=== PATIENT | female | born 1925 | race Caucasian/White ===

== ENCOUNTER → 2016-09-10 | Outpatient (CLI) | payer MEDICARE ==
--- NOTE | 2016-09-10 12:43 | CT ---
EXAMINATION TYPE: CT lumbar spine wo con DATE OF EXAM: 09/10/2016 9:03 AM COMPARISON: NONE HISTORY: 89-year-old female with pain, evaluate for spinal stenosis of lumbar spine TECHNIQUE: Contiguous axial scanning of the lumbar spine without IV contrast. Coronal and sagittal re constructions performed. CT DLP: 329.6 mGycm Automated exposure control for dose reduction was used. FINDINGS: There is bilateral nonobstructive renal calculi measuring up to 4 mm on the left. Left greater than r ight parapelvic cysts are demonstrated. There is osteopenia. Mild compression deformity of T12 is age indeterminate but suspected chronic. No retropulsion into the spinal canal. Alignment is maintained. Mild disc bulging at multiple levels. There is facet arthropathy lower lumbar spine with right-sided L5 pars interarticularis defect but no anterolisthesis. By CT, no large focal disc herniation is seen. Disc bulges contribute to variable mild bilateral neur oforaminal stenoses especially from L3 through S1 levels. IMPRESSION: 1. MILD COMPRESSION DEFORMITY OF T12 IS AGE INDETERMINATE BUT SUSPECTED TO BE CHRONIC. CORRELATE FOR ANY FOCAL PAIN AT THIS LEVEL. NO RETROPULSION INTO THE SPINAL CANAL. 2. MILD MULTILEVEL DEGENERATIVE DISC DISEASE. MILD FACET ARTHROPATHY LOWER LUMBAR SPINE. CHANGES RESU LT IN VARIABLE MILD NEUROFORAMINAL STENOSES FROM L3 THROUGH S1 LEVELS. 3. BY CT, NO LARGE FOCAL DISC HERNIATION OR CANAL COMPROMISE IS APPRECIATED. 4. RIGHT L5 PARS DEFECT . PRESERVED ALIGNMENT. 5. BILATERAL NONOBSTRUCTIVE NEPHROLITHIASIS.
== END ==
LOC: RADCTMAIN 08:39
PROVIDERS: ATTEND Family Medicine
DX: R51 Headache (principal); R41.3 Other amnesia
CPT/HCPCS: 72131

== ENCOUNTER → 2016-09-10 | Outpatient (CLI) | payer MEDICARE ==
[~2016-09-10] MED LIST: DENOSUMAB 60 MG/ML 1 ML SYRINGE SQ NR
[2016-09-10 08:14] VITALS: BP 116/59; PULSE 78; RESP 16; TEMP 97.7
== END | disposition home or self-care (01) ==
LOC: PROCWHC3 07:57
PROVIDERS: ATTEND Family Medicine
DX: M81.0 Age-related osteoporosis without current pathological fracture (principal)
CPT/HCPCS: 96372; J0897; 72131

== ENCOUNTER → 2016-09-30 | Outpatient (CLI) | payer MEDICARE ==
--- NOTE | 2016-10-06 10:07 | P.ARTDOP ---
Arterial Doppler LOWER EXTREMITY ARTERIAL DOPPLER: DATE OF SERVICE: 09/30/2016 Reason for study: Bilateral foot pain Doppler waveforms: Multiphasic bilaterally throughout. Pulse volume recording: []. Pressure gradients: None. Ankle-brachial indices: Greater than 1 bilaterally. Toe pressures: [] on the right, [] on the left Impression: Normal limited study.
== END | disposition home or self-care (01) ==
LOC: RADUSWWP 13:56
PROVIDERS: ATTEND Family Medicine
DX: I73.9 Peripheral vascular disease, unspecified (principal)
CPT/HCPCS: 93922

== ENCOUNTER → 2016-11-18 | Outpatient (CLI) | payer MEDICARE | END | disposition home or self-care (01) | LOC: LABWHC1 11:58 | PROVIDERS: ATTEND Psychiatry & Neurology Neurology | DX: G45.9 Transient cerebral ischemic attack, unspecified (principal) | CPT/HCPCS: 36415; 82565; 84520 ==

== ENCOUNTER → 2016-11-22 | Outpatient (CLI) | payer MEDICARE ==
--- NOTE | 2016-11-22 11:41 | MR ---
EXAMINATION TYPE: MR brain wo/w con DATE OF EXAM: 11/22/2016 COMPARISON: CT brain November 25, 2015 HISTORY: Leg stiffness per patient, TIA and tumor per order. TECHNIQUE: Multiplanar, multisequence images of the brain and brainstem is performed without and with IV contras t, utilizing 9 mL intravenous MultiHance . FINDINGS: Diffusion weighted images demonstrate no evidence of a recent infarct or other diffusion ab normality. There is no worrisome extra-axial fluid collection. There is ventricular and sulcal promi nence consistent with diffuse cerebral atrophy. There are focal and confluent areas of T2 hyperintens ity seen throughout the deep and periventricular white matter. Lesions are nonspecific in appearance and distribution but most likely on basis of product of chronic small vessel ischemic change in patie nt of this age. Midline structures demonstrate normal morphology. The craniocervical junction appears within normal limits. Post contrast images demonstrate no abnormal enhancement. The dural venous sinuses appear pa tent. Mucosal thickening in both sphenoid sinuses with dependent fluid right sphenoid sinus remains p resent IMPRESSION: 1. There is moderate diffuse cerebral atrophy and chronic small vessel ischemic change redemonstrated . 2. Possible recurrent acute right-sided sphenoid sinusitis, clinical correlation advised. 3. No evidence of a recent infarct. No suspicious enhancing intraparenchymal mass is noted.
== END | disposition home or self-care (01) ==
LOC: RADMRIMAIN 10:35
PROVIDERS: ATTEND Psychiatry & Neurology Neurology
DX: G31.9 Degenerative disease of nervous system, unspecified (principal); I67.82 Cerebral ischemia; D49.6 Neoplasm of unspecified behavior of brain
CPT/HCPCS: 70553

== ENCOUNTER → 2016-12-01 | Outpatient (CLI) | payer MEDICARE ==
--- NOTE | 2016-12-02 09:48 | MM ---
Reason for exam: screening (asymptomatic). Last mammogram was performed 2 years and 2 months ago. History: Patient is postmenopausal. Physical Findings: A clinical breast exam by your physician is recommended on an annual basis and results should be correlated with mammographic findings. MG 3D Screening Mammo W/Cad Bilateral CC and MLO view(s) were taken. Prior study comparison: September 17, 2014, bilateral MG screening mammo w CAD. September 14, 2013, bilateral MG screening mammo w CAD. The breast tissue is heterogeneously dense. This may lower the sensitivity of mammography. No significant changes when compared with prior studies. ASSESSMENT: Negative, BI-RAD 1 RECOMMENDATION: Routine screening mammogram of both breasts in 1 year.
== END | disposition home or self-care (01) ==
LOC: RADMAMWWP 13:09
PROVIDERS: ATTEND Family Medicine
DX: Z12.31 Encounter for screening mammogram for malignant neoplasm of breast (principal)
CPT/HCPCS: 77063; G0202

== ENCOUNTER → 2016-12-13 | Outpatient (CLI) | payer MEDICARE | END | disposition home or self-care (01) | LOC: LABWHC1 09:40 | PROVIDERS: ATTEND Psychiatry & Neurology Neurology | DX: M54.16 Radiculopathy, lumbar region (principal) | CPT/HCPCS: 36415; 82565; 84520 ==

== ENCOUNTER → 2016-12-18 | Outpatient (CLI) | payer MEDICARE ==
--- NOTE | 2016-12-18 08:04 | MR ---
EXAMINATION TYPE: MR lumbar spine wo/w con DATE OF EXAM: 12/18/2016 COMPARISON: NONE HISTORY: CT scan dated 09/10/2016 Contrast: 5 mL of MultiHance TECHNIQUE: T1 and T2 axial and sagittal images of the lumbar spine are submitted. FINDINGS: There is no abnormal signal seen within the visualized spinal cord or paraspinal soft tissu es. There are bilateral simple appearing renal cysts and nonobstructive calculi. At T12-L1 there is a moderate chronic compression superior endplate fracture T12. Approximately 5-10% retropulsion and mild effacement of thecal sac but no spinal cord contact or foraminal encroachment. At L1-2 there is mild degenerative disc disease. No Canal stenosis. No foraminal encroachment. At L2-3 there is mild degenerative disc disease and mild facet arthropathy and ligamentum flavum hype rtrophy but no canal stenosis or foraminal encroachment. At L3-4 there is mild degenerative disc disease with facet arthropathy and ligamentum flavum hypertro phy. No disc herniation, canal stenosis. Neural foramina remain patent. At L4-5 there is moderate facet arthropathy and ligamentum flavum hypertrophy. There is broad-based c entral left paracentral disc bulging with mild effacement of thecal sac. No Canal stenosis. Mild bila teral foraminal encroachment. At L5-S1 there is facet arthropathy with unilateral right spondylolysis but no spondylolisthesis. No canal stenosis or disc herniation. Neural foramina patent. IMPRESSION: 1. Multilevel mild degenerative disc disease with a chronic appearing superior endplate compression f racture T12. This results in 5-10% retropulsion and mild effacement of thecal sac but no spinal cord contact. 2. Multilevel facet arthropathy and hypertrophic change of the ligamentum flavum but no canal stenosi s or focal disc herniations. 3. Stable unilateral spondylolysis L5. 4. Disc bulging L4-L5 with no canal stenosis. Mild bilateral foraminal encroachment.
== END | disposition home or self-care (01) ==
LOC: RADMRIMAIN 07:02
PROVIDERS: ATTEND Psychiatry & Neurology Neurology
DX: M51.16 Intervertebral disc disorders with radiculopathy, lumbar region (principal); M47.26 Other spondylosis with radiculopathy, lumbar region; M46.06 Spinal enthesopathy, lumbar region
CPT/HCPCS: 72158; A9581

== ENCOUNTER → 2017-03-14 | Outpatient (CLI) | payer MEDICARE ==
[~2017-03-14] MED LIST changes: -DENOSUMAB 60 MG/ML 1 ML SYRINGE SQ NR; +DENOSUMAB 60 MG/ML 1 ML SYRINGE SQ ONE
[2017-03-14 09:03] VITALS: BP 134/61; RESP 16; TEMP 98
== END ==
LOC: PROCWHC3 08:47
PROVIDERS: ATTEND Family Medicine
DX: M81.0 Age-related osteoporosis without current pathological fracture (principal)
CPT/HCPCS: 96372; J0897

== ENCOUNTER 2017-08-25 12:09 | Emergency (ER) | payer MEDICARE ==
[2017-08-25 12:29] VITALS: TEMP 98.2
[2017-08-25] MEDS ORDERED: DIPH,PERTUS(ACELL)TETVAC-LF 0.5 ML VIAL IM ONE (12:52)
--- NOTE | 2017-08-25 13:00 | ED ---
General Adult HPI - General Chief complaint: Wound/Laceration Stated complaint: fall, head lac Time Seen by Provider: 08/25/17 12:30 Source: patient, family, RN notes reviewed Mode of arrival: wheelchair Limitations: no limitations - History of Present Illness Initial comments: 89-year-old female presents status post fall with head injury. Patient fell earlier this morning striking the back of her head. She did have significant amount of bleeding and she is not on blood thinner she does take a baby aspirin. According to the patient there was no loss of consciousness. She denies significant pain. She denies neck pain. Denies extremity pain. Denies chest pain or shortness of breath. No abdominal pain. Patient has had multiple falls over the past several years. She has had 2 falls within the last month. Patient is accompanied by her niece who is concerned about the number of falls she's had. She has been evaluated by her primary care physician who was well aware of her falling. She does have a cane but not use it all the time, no walker. Patient lives alone. - Related Data Home Medications Medication Instructions Recorded Confirmed Calcium Carbonate/Vitamin D3 1 tab PO DAILY 09/10/16 08/25/17 [Calcium 600-Vit D3 400 Caplet] Levothyroxine Sodium [Synthroid] 25 mcg PO Q48H 09/10/16 08/25/17 Aspirin [Adult Low Dose Aspirin EC] 81 mg PO DAILY 03/14/17 08/25/17 Cetirizine HCl [Zyrtec] 10 mg PO DAILY 08/25/17 08/25/17 Allergies Allergy/AdvReac Type Severity Reaction Status Date / Time codeine Allergy Nausea & Verified 08/25/17 12:38 Vomiting Review of Systems ROS Statement: Those systems with pertinent positive or pertinent negative responses have been documented in the HPI. ROS Other: All systems not noted in ROS Statement are negative. Past Medical History Past Medical History: Thyroid Disorder History of Any Multi-Drug Resistant Organisms: None Reported Additional Past Surgical History / Comment(s): c/s Past Psychological History: No Psychological Hx Reported Smoking Status: Never smoker Past Alcohol Use History: None Reported Past Drug Use History: None Reported General Exam Limitations: no limitations General appearance: alert, in no apparent distress Head exam: Present: normocephalic. Absent: atraumatic (Left parietal occipital laceration 3 cm, no active bleeding.) Eye exam: Present: normal appearance, PERRL ENT exam: Present: normal exam Neck exam: Present: normal inspection, full ROM. Absent: tenderness, meningismus Respiratory exam: Present: normal lung sounds bilaterally. Absent: respiratory distress, wheezes Cardiovascular Exam: Present: regular rate, normal rhythm GI/Abdominal exam: Present: soft. Absent: distended, tenderness Extremities exam: Present: normal inspection, full ROM, normal capillary refill. Absent: pedal edema Neurological exam: Present: alert, oriented X3, CN II-XII intact. Absent: motor sensory deficit Psychiatric exam: Present: normal affect, normal mood Skin exam: Present: warm, dry. Absent: cyanosis, diaphoretic Course Vital Signs 08/25/17 12:25 Temperature 98.2 F Pulse Rate 98 Respiratory 20 Rate Blood Pressure 112/53 O2 Sat by Pulse 98 Oximetry Procedures - Laceration Laceration #1 Consent Obtained: verbal consent Time Out Performed: Yes Indication: laceration Site: scalp Description: linear Depth: simple, single layer Pre-repair: wound explored Type of Sutures: other (5 cece) Technique: simple, interrupted Patient Tolerated Procedure: well Medical Decision Making - Medical Decision Making 89-year-old female with fall, head injury, and laceration. Laceration is repaired with 5 cece. Tetanus is updated. Patient's neurologic exam is nonfocal. Head CT negative for intracranial hemorrhage, no fracture of the cervical spine. Patient is otherwise well-appearing. I did have a long discussion regarding use of the patient's walker and cane. She does have good outpatient follow-up with her primary care physician and she does have family support. Disposition Clinical Impression: Laceration, Closed head injury Disposition: HOME SELF-CARE Condition: Fair Instructions: Laceration (ED), Head Injury (ED) Is patient prescribed a controlled substance at d/c from ED?: No Referrals: Mohsen Ball MD [Primary Care Provider] - 1-2 days Time of Disposition: 13:59
--- NOTE | 2017-08-25 13:53 | CT ---
EXAMINATION TYPE: CT brain eunice wo con DATE OF EXAM: 08/25/2017 COMPARISON: 11/25/2015 HISTORY: Fall, head lac CT DLP: 1405 mGycm Automated exposure control for dose reduction was used. TECHNIQUE: CT scan of the head and cervical spine are performed without contrast. FINDINGS: Soft tissue hematoma overlying the left frontal bone. Mild to moderate generalized degene rative change seen. Low-attenuation within the white matter noted bilaterally. No midline shift or ma ss effect. Changes of chronic sinusitis noted. No acute intracranial hemorrhage. Question previous trauma to the right zygomatic arch. Assessment spinal canal nondiagnostic due to artifact and lack of contrast. There is diffuse osteopen ia with multilevel degenerative disc disease and facet arthropathy. No acute fracture. IMPRESSION: 1. There is no acute fracture or dislocation evident in the cervical spine. 2. No acute intracranial hemorrhage, mass effect, or midline shift is seen. Degenerative and nonspeci fic white matter changes most typical remote microvascular ischemia. 3. Soft tissue hematoma overlying the left frontal bone
[2017-08-25 14:12] VITALS: BP 92/56; PULSE 74; RESP 16
== END 2017-08-25 14:12 | disposition home or self-care (01) ==
LOC: EC 12:09
DX: S01.01XA Laceration without foreign body of scalp, initial encounter (principal); E07.9 Disorder of thyroid, unspecified; Z23 Encounter for immunization; Z79.82 Long term (current) use of aspirin; Z79.899 Other long term (current) drug therapy; Z88.5 Allergy status to narcotic agent; W18.00XA Striking against unspecified object with subsequent fall, initial encounter
CPT/HCPCS: 12002; 70450; 72125; 90471; 90715; 99283

== ENCOUNTER → 2017-09-12 | Outpatient (CLI) | payer MEDICARE ==
[2017-09-12 13:06] VITALS: BP 101/59; PULSE 83; RESP 14; TEMP 98.6
== END | disposition home or self-care (01) ==
LOC: PROCWHC3 12:40
PROVIDERS: ATTEND Family Medicine
DX: M81.0 Age-related osteoporosis without current pathological fracture (principal)
CPT/HCPCS: 96372; J0897

== ENCOUNTER 2017-09-16 12:44 | Emergency (ER) | payer MEDICARE ==
[2017-09-16 12:51] VITALS: RESP 18; TEMP 98.2
[2017-09-16 14:12] LABS: Appearance,Urine Cloudy (Clear); Bilirubin,Urine Negative (Negative); Blood,Urine Small (Negative); Color,Urine Yellow; Glucose,Urine (UA) Negative (Negative); Granular Casts,Urine 2 /lpf (0); Hyaline Casts,Urine 12 /lpf (0-2); Ketones,Urine Negative (Negative); Leukocyte Esterase,Urine Negative (Negative); Mucus,Urine Occasional /hpf; Nitrite,Urine Negative (Negative); PH, Urine 5.5 (5.0-8.0); Protein,Urine 1+ (Negative); RBC,Urine 8 /hpf (0-5); Specific Gravity,Urine 1.024 (1.001-1.035); Squamous Epithelial Cell,Urine 3 /hpf (0-4); WBC,Urine 2 /hpf (0-5)
--- NOTE | 2017-09-16 14:44 | ED ---
Fall HPI - General Chief Complaint: Fall Stated Complaint: fall Time Seen by Provider: 09/16/17 13:12 Source: patient, family, RN notes reviewed, old records reviewed Mode of arrival: wheelchair - History of Present Illness Initial Comments: 89-year-old female presents emergency department today after a fall. Patient was ambulating with her walker stating and a counter. She reports that she lost her balance and fell backward onto her back. Patient states that she has been evaluated by multiple doctors including grain origination specialist in neurology in regards to her leg pains and chronic dizziness. She states that she has no pain associated with the fall. She states she feels well and really does not want to be here. She wanted her family members wanted her to be evaluated. She doesn't complain of any chest pain shortness of breath. No recent nausea or vomiting. No other symptoms. - Related Data Home Medications Medication Instructions Recorded Confirmed Calcium Carbonate/Vitamin D3 1 tab PO DAILY 09/10/16 09/16/17 [Calcium 600-Vit D3 400 Caplet] Levothyroxine Sodium [Synthroid] 25 mcg PO Q48H 09/10/16 09/16/17 Aspirin [Adult Low Dose Aspirin EC] 81 mg PO DAILY 03/14/17 09/16/17 Cetirizine HCl [Zyrtec] 10 mg PO DAILY 08/25/17 09/16/17 Allergies Allergy/AdvReac Type Severity Reaction Status Date / Time codeine AdvReac Nausea & Verified 09/16/17 13:19 Vomiting Review of Systems ROS Statement: Those systems with pertinent positive or pertinent negative responses have been documented in the HPI. ROS Other: All systems not noted in ROS Statement are negative. Past Medical History Past Medical History: Thyroid Disorder Additional Past Medical History / Comment(s): weak on legs History of Any Multi-Drug Resistant Organisms: None Reported Past Surgical History: Section Additional Past Surgical History / Comment(s): c/s Past Psychological History: No Psychological Hx Reported Smoking Status: Never smoker Past Alcohol Use History: None Reported Past Drug Use History: None Reported General Exam - General Exam Comments Initial Comments: 89-year-old female. Alert and oriented. No acute distress. Limitations: no limitations General appearance: alert, in no apparent distress Head exam: Present: atraumatic, normocephalic, normal inspection Eye exam: Present: normal appearance, PERRL, EOMI. Absent: scleral icterus, conjunctival injection, periorbital swelling ENT exam: Present: normal exam, mucous membranes moist Neck exam: Present: normal inspection. Absent: tenderness, meningismus, lymphadenopathy Respiratory exam: Present: normal lung sounds bilaterally. Absent: respiratory distress, wheezes, rales, rhonchi, stridor Cardiovascular Exam: Present: regular rate, normal rhythm, normal heart sounds. Absent: systolic murmur, diastolic murmur, rubs, gallop, clicks GI/Abdominal exam: Present: soft, normal bowel sounds. Absent: distended, tenderness, guarding, rebound, rigid Extremities exam: Present: normal inspection, full ROM, normal capillary refill. Absent: tenderness, pedal edema, joint swelling, calf tenderness Back exam: Present: normal inspection Neurological exam: Present: alert, oriented X3, CN II-XII intact Psychiatric exam: Present: normal affect, normal mood Skin exam: Present: warm, dry, intact, normal color. Absent: rash Course Vital Signs 09/16/17 12:47 Temperature 98.2 F Pulse Rate 95 Respiratory 18 Rate Blood Pressure 93/55 O2 Sat by Pulse 95 Oximetry Medical Decision Making - Lab Data Lab Results 09/16/17 Range/Units 13:50 Urine Color Yellow Urine Appearance Cloudy H (Clear) Urine pH 5.5 (5.0-8.0) Ur Specific [place] 1.024 (1.001-1.035) Urine Protein 1+ H (Negative) Urine Glucose (UA) Negative (Negative) Urine Ketones Negative (Negative) Urine Blood Small H (Negative) Urine Nitrite Negative (Negative) Urine Bilirubin Negative (Negative) Urine Urobilinogen 2.0 (<2.0) mg/dL Ur Leukocyte Esterase Negative (Negative) Urine RBC 8 H (0-5) /hpf Urine WBC 2 (0-5) /hpf Ur Squamous Epith Cells 3 (0-4) /hpf Hyaline Casts 12 H (0-2) /lpf Granular Casts 2 (0) /lpf Urine Mucus Occasional H (None) /hpf Disposition Clinical Impression: Fall, Thoracic compression fracture Disposition: HOME SELF-CARE Condition: Good Instructions: Fall Prevention for Older Adults (ED), Vertebral Compression Fracture (ED) Additional Instructions: Patient advised to follow up with PCP and Registered Nurse. Return to ED if any alarming signs or symptoms occur. Is patient prescribed a controlled substance at d/c from ED?: No When asked, does pt state using other controlled substances?: No If prescribed controlled substance>3 days was MAPS reviewed?: No If opioid is for acute pain is fill amount 7 days or less?: No If Rx opioid, was Start Talking consent form obtained?: No Referrals: Mohsen Ball MD [Primary Care Provider] - 1-2 days Time of Disposition: 15:15
--- NOTE | 2017-09-16 14:52 | XR ---
EXAMINATION TYPE: XR lumbar spine 2 or 3V, XR thoracic spine 2V DATE OF EXAM: 09/16/2017 CLINICAL HISTORY: Back pain after a fall TECHNIQUE: Frontal and lateral images of the thoracic and lumbar spine are obtained. COMPARISON: MRI lumbar spine dated 12/18/2016 FINDINGS: There are 5 lumbar type vertebral bodies identified. The lumbar spine shows satisfactory alignment without evidence of acute fracture or dislocation. Compression deformity of the T12 vertebr al body measures approximately 5%. The vertebral body heights and disk space heights of the lumbar sp ine are within normal limits. The oblique images appear within normal limits. There is a 5 mm left renal calculus and 2 mm right renal calculus. In addition to the compression deformity of the T12 vertebral body (chronic as seen on the prior MR l umbar spine of 12/18/2016) within the thoracic spine there are compression deformities of the T10 vert ebral body of less than 10%, T7 vertebral body of less than 10%, T6 vertebral body of approximately 5 0%, T3 vertebral body of approximately 40%, and mild multilevel degenerative changes of the thoracic spine. Calcified mediastinal granulomas are incidentally seen. There is diffuse osseous demineralization. Mi ld degenerative changes of the lumbar spine are seen. Moderate calcific atheromatous changes are note d of the abdominal aorta. IMPRESSION: 1. Age indeterminant compression deformities of the T3, T6, T7 and T10 vertebral bodies without prior comparison. Correlate with point tenderness to determine the need for MRI to evaluate for bone marro w edema. 2. Chronic compression deformity of the T12 vertebral body seen on the prior MR lumbar spine of 2016. 3. Bilateral probable renal calculi.
[2017-09-16 15:41] VITALS: BP 163/70; PULSE 85
== END 2017-09-16 15:41 | disposition home or self-care (01) ==
LOC: EC 12:44
DX: S22.039A Unspecified fracture of third thoracic vertebra, initial encounter for closed fracture (principal); S22.059A Unspecified fracture of T5-T6 vertebra, initial encounter for closed fracture; S22.069A Unspecified fracture of T7-T8 vertebra, initial encounter for closed fracture; S22.079A Unspecified fracture of T9-T10 vertebra, initial encounter for closed fracture; E07.9 Disorder of thyroid, unspecified; Z79.82 Long term (current) use of aspirin; Z79.899 Other long term (current) drug therapy; Z88.5 Allergy status to narcotic agent; W19.XXXA Unspecified fall, initial encounter; Y92.512 Supermarket, store or market as the place of occurrence of the external cause
CPT/HCPCS: 72070; 72100; 81001; 99284